=== PATIENT | male | born 1965 | race Caucasian/White ===

== ENCOUNTER 2021-04-30 11:12 | Emergency (ER) | payer BC, SELFPAY ==
[2021-04-30] VITALS (12 sets, daily range): BP systolic 103–133; BP diastolic 68–80; PULSE 62–77; RESP 13–23; TEMP 36.9; O2SAT 97–100; BMI 26.2
--- NOTE | 2021-04-30 11:21 | DI.RAD.S_ITS ---
PROCEDURE: XR CHEST 1V INDICATIONS: chest pain TECHNIQUE: One view of the chest was acquired. COMPARISON: [facility], CR, XR CHEST 1 VIEW, 04/25/2021, 13:02. FINDINGS: Surgical changes and devices: None. Lungs and pleura: Lungs are clear. No pleural effusions or pneumothorax. Mediastinum: Mediastinal contours appear normal. Heart size is normal. Bones and chest wall: No suspicious bony lesions. Overlying soft tissues appear unremarkable. IMPRESSION: Portable chest within normal limits. Dictated by: Jed Mancilla M.D. on 04/30/2021 at 10:41 Approved by: Jed Mancilla M.D. on 04/30/2021 at 10:41
[2021-04-30 11:32] LABS: Add Manual Diff / Slide Review NO; Basophils Absolute Auto 0 /uL (0-100); Basophils Percent Auto 0.7 % (0-2); Eosinophils Absolute Auto 100 /uL (0-450); Eosinophils Percent Auto 1.7 % (2-4); Hemoglobin 14.3 g/dL (13.5-17.5); Lymphocytes Absolute Auto 1500 /uL (1100-4500); Lymphocytes Percent Auto 29.5 % (25-40); Mean Corpuscular HGB Conc 33.2 % (30-36); Mean Corpuscular Hemoglobin 30.4 PG (26-34); Mean Corpuscular Volume 91.4 fL (80-100); Monocytes Absolute Auto 500 /uL (0-900); Monocytes Percent Auto 10.8 % (3-14); Neutrophils Absolute Auto 2800 /uL (1500-7000); Neutrophils Percent Auto 57.3 % (50-75); Platelet Count 217 X10^3/uL (150-400); Red Cell Distribution Width 13.7 % (11.6-14.8)
[2021-04-30 11:41] LABS: Alanine Aminotransferase 25 IU/L (<50); Albumin 4.2 g/dL (3.5-5.0); Albumin Globulin Ratio 1.5 (1.0-2.8); Alkaline Phosphatase 54 U/L (38-126); Aspartate Aminotransferase 31 IU/L (17-59); BUN Creatinine Ratio 18.3 (6-22); Bilirubin Total 0.5 mg/dL (0.2-1.3); Blood Urea Nitrogen 15 mg/dL (9-20); Calcium 9.2 mg/dL (8.4-10.2); Carbon Dioxide 27 mmol/L (22-32); Chloride 106 mmol/L (98-107); Creatine Kinase 169 U/L (55-170); Estimated Glomerular Filt Rate > 60.0 mL/min (>60); Globulin 2.8 g/dL (1.7-4.1); Glucose 110 mg/dL (70-100); HEMOLYSIS < 15 (0-50); Lipase 73 U/L (23-300); Potassium 4.3 mmol/L (3.4-5.1); Sodium 139 mmol/L (137-145)
[2021-04-30 11:53] LABS: Troponin I < 0.012 ng/mL (0.01-0.034)
[2021-04-30 11:57] LABS: CKMB % Relative Index 1.2 % (1.5-5.0); Creatine Kinase MB 2.01 ng/mL (<2.37)
--- NOTE | 2021-04-30 11:58 | ED.CHESTPAIN ---
HPI - Chest Pain General Chief Complaint: Chest Pain Stated Complaint: heart issues, covid test done- no result Time Seen by Provider: 04/30/21 11:46 Source: patient Mode of arrival: Ambulatory Limitations: no limitations History of Present Illness HPI narrative: Patient is a 55-year-old male who on Wednesday of last week had an episode where he was somewhat lightheaded and had chest discomfort. He went to an outside facility by EMS. He states that he had a workup this facility and was subsequently discharged home. Had been relatively asymptomatic until today. He has she followed up with his primary doctor yesterday. He stated that there discussion was they were going to work on getting him a stress test. Today he was sitting at home and had the same symptoms that he had on Wednesday once again. He is currently asymptomatic. He states that he felt somewhat dizzy and then had left-sided chest pain. No nausea vomiting. No abdominal pain. No new rashes. No vision changes. No problems breathing. No lower extremity swelling. Related Data Home Medications Medication Instructions Recorded Confirmed acetaminophen 500 mg tablet 1,000 mg PO QID PRN 01/26/20 01/26/20 (Tylenol Extra Strength) aloe vera 25 mg capsule mg PO 01/26/20 01/26/20 antiarthritic combination no.2 900 mg PO 01/26/20 01/26/20 mg tablet (glucosamine-chondroitin) cholecalciferol (vitamin D3) 25 1,000 unit PO BID tab 01/26/20 01/26/20 mcg (1,000 unit) tablet fexofenadine 180 mg tablet 180 mg PO DAILY 01/26/20 01/26/20 (Isabel Allergy) fluticasone propionate 50 1 spray NASAL DAILY 01/26/20 01/26/20 mcg/actuation nasal spray,suspension (Flonase Allergy Relief) multivitamin 1 tab PO DAILY 01/26/20 01/26/20 omega-3 fatty acids 1,000 mg 1,000 mg PO DAILY 01/26/20 01/26/20 capsule (Fish Oil Concentrate) red yeast rice 600 mg capsule 300 mg PO BID cap 01/26/20 01/26/20 turmeric 400 mg capsule mg PO 01/26/20 01/26/20 Allergies Allergy/AdvReac Type Severity Reaction Status Date / Time Iodinated Contrast Media Allergy Unknown Verified 04/30/21 11:22 [IODINATED CONTRAST- ORAL AND IV DYE] Review of Systems Constitutional Constitutional: Reports system reviewed and no additional complaints, except as documented Cardiovascular Cardiovascular: Reports as per HPI Respiratory Respiratory: Reports as per HPI Gastrointestinal Gastrointestinal: Reports system reviewed and no additional complaints, except as documented Musculoskeletal Musculoskeletal: Reports system reviewed and no additional complaints, except as documented Integumentary/Breasts Skin/Breast: Reports system reviewed and no additional complaints, except as documented Neurologic Neurologic: Reports system reviewed and no additional complaints, except as documented Hematologic/Lymphatic On Anticoagulants: No Allergic/Immunologic Allergic/Immunologic: Reports system reviewed and no additional complaints, except as documented Patient History Medical History Bruise Social History Smoking Status: Never smoker Smoking Status: Never smoker alcohol intake frequency: holidays/special occasions only Substance Use Type: does not use Exam Initial Vital Signs Initial Vital Signs: Vital Signs Temperature 98.4 F 04/30/21 11:18 Pulse Rate 77 04/30/21 11:18 Respiratory Rate 15 04/30/21 11:18 Blood Pressure 119/77 04/30/21 11:18 Pulse Oximetry 99 04/30/21 11:18 HENMT Head: normal to inspection and normocephalic Eyes General: appearance normal, both eyes and all related structures Resp Effort & Inspection: normal respiratory effort Auscultation: clear to auscultation bilaterally Cardio Rate: regular rate Rhythm: regular rhythm GI Inspection: normal to inspection Skin General: no rashes or lesions noted Neuro General: patient alert, patient awake and moves all extremities Extrem General: normal to inspection and capillary refill normal Psych Appearance: grossly normal and well kempt Scores HEART Score Heart Score history: Slightly Suspicious Heart Score EKG: Normal Heart Score Age: 45-64 years old Heart Score risk factors: 1-2 risk factors Heart Score troponin: < or = to normal limit Heart Score Total: 2 Course Orders Ordered: ED Orders 04/30/21 11:20 Complete Blood Count AUTO DIFF Stat Comprehensive Metabolic Panel Stat Lipase Stat Troponin & CK Cardiac Panel Stat 04/30/21 11:21 XR chest 1V Stat EKG-12 Lead Stat 04/30/21 13:39 Troponin & CK Cardiac Panel Stat Vital Signs Vital signs: Vital Signs - 8 hr 08/11/21 11:18 04/30/21 11:19 04/30/21 11:20 Temperature 98.4 F Pulse Rate 77 77 73 Respiratory Rate 15 Blood Pressure 119/77 119/77 Pulse Oximetry 99 99 100 04/30/21 11:30 04/30/21 12:00 04/30/21 12:30 Temperature Pulse Rate 77 69 72 Respiratory Rate 23 15 Blood Pressure 133/68 103/71 106/80 Pulse Oximetry 99 99 99 04/30/21 13:00 04/30/21 13:01 04/30/21 13:30 Temperature Pulse Rate 66 66 63 Respiratory Rate 17 15 13 Blood Pressure 114/77 105/78 Pulse Oximetry 97 97 97 04/30/21 14:00 Temperature Pulse Rate 65 Respiratory Rate 14 Blood Pressure 109/79 Pulse Oximetry 97 MDM - Chest Pain Lab Data Attestation: I reviewed the patient's lab results. Result diagrams: 04/30/21 11:20 04/30/21 11:20 Labs: Lab Results 04/30/21 04/30/21 04/30/21 Range/Units 11:20 11:20 13:39 WBC 5.0 (4.5-11.0) X10^3/uL RBC 4.70 (4.5-5.9) X10^6/uL Hgb 14.3 (13.5-17.5) g/dL Hct 43.0 (41-53) % MCV 91.4 (80-100) fL MCH 30.4 (26-34) PG MCHC 33.2 (30-36) % RDW 13.7 (11.6-14.8) % Plt Count 217 (150-400) X10^3/uL Neut % (Auto) 57.3 (50-75) % Lymph % (Auto) 29.5 (25-40) % Pickett % (Auto) 10.8 (3-14) % Eos % (Auto) 1.7 L (2-4) % Baso % (Auto) 0.7 (0-2) % Neut # (Auto) 2800 (6365-5985) /uL Lymph # (Auto) 1500 (6542-3189) /uL Pickett # (Auto) 500 (0-900) /uL Eos # (Auto) 100 (0-450) /uL Baso # (Auto) 0 (0-100) /uL Sodium 139 (137-145) mmol/L Potassium 4.3 (3.4-5.1) mmol/L Chloride 106 (98-107) mmol/L Carbon Dioxide 27 (22-32) mmol/L BUN 15 (9-20) mg/dL Creatinine 0.82 (0.66-1.25) mg/dL Estimated GFR > 60.0 (>60) mL/min BUN/Creatinine Ratio 18.3 (6-22) Glucose 110 H (70-100) mg/dL Calcium 9.2 (8.4-10.2) mg/dL Total Bilirubin 0.5 (0.2-1.3) mg/dL AST 31 (17-59) IU/L ALT 25 (<50) IU/L Alkaline Phosphatase 54 (38-126) U/L Total Creatine Kinase 169 163 (55-170) U/L CK-MB (CK-2) 2.01 1.72 (<2.37) ng/mL CK-MB (CK-2) Rel Index 1.2 L 1.1 L (1.5-5.0) % Troponin I < 0.012 < 0.012 (0.01-0.034) ng/mL Total Protein 7.0 (6.3-8.2) g/dL Albumin 4.2 (3.5-5.0) g/dL Globulin 2.8 (1.7-4.1) g/dL Albumin/Globulin Ratio 1.5 (1.0-2.8) Lipase 73 (23-300) U/L ECG Data Attestation: I personally reviewed and interpreted this ECG as follows: Interpretation: Sinus rhythm Ventricular rate is 72 Occasional PVC Normal QRS Normal QTC No ST T wave changes MDM Narrative Medical decision making narrative: Symptom free since arrival here to the emergency department. Has a low risk heart score. Has a unremarkable EKG. Troponins negative x2. He has already seen his primary doctor after having an ED visit last week. There is referral in place to have him get a stress test. Patient could be discharged home and follow-up with the stress test. He was given return precautions. He expressed understanding and agreement Discharge Plan Departure Patient Disposition: Home Clinical Impression: Atypical chest pain Instructions: DI for Atypical Chest Pain Activity Restrictions/Additional Instructions: Continue all of your medications as directed and I recommend that you again make contact with your primary doctor and be sure to schedule the stress test for further evaluation. Return to the emergency department for any new or worsening symptoms Prescriptions: No Action fexofenadine [Isabel Allergy] 180 mg tablet 180 mg PO DAILY RF: 0 fluticasone propionate [Flonase Allergy Relief] 50 mcg/actuation spray,suspension 1 spray NASAL DAILY RF: 0 acetaminophen [Tylenol Extra Strength] 500 mg tablet 1,000 mg PO QID PRNRF: 0 multivitamin Tablet 1 tab PO DAILY RF: 0 glucosamine-chondroitin 900 mg tablet PO RF: 0 red yeast rice 600 mg capsule 300 mg PO BID RF: 0 omega-3 fatty acids [Fish Oil Concentrate] 1,000 mg capsule 1,000 mg PO DAILY RF: 0 cholecalciferol (vitamin D3) 25 mcg (1,000 unit) tablet 1,000 unit PO BID RF: 0 aloe vera 25 mg capsule PO RF: 0 turmeric 400 mg capsule PO RF: 0 Referrals: Pierre Chang MD [Primary Care Provider] -
[2021-04-30 14:02] LABS: Creatine Kinase 163 U/L (55-170)
[2021-04-30 14:13] LABS: Troponin I < 0.012 ng/mL (0.01-0.034)
[2021-04-30 14:17] LABS: CKMB % Relative Index 1.1 % (1.5-5.0); Creatine Kinase MB 1.72 ng/mL (<2.37)
== END 2021-04-30 15:07 | disposition home or self-care (01) ==
PROVIDERS: Emergency Provider Emergency Medicine; PCP Family Medicine
DX: R07.89 Other chest pain (principal); R42 Dizziness and giddiness
CPT/HCPCS: 36415; 71045; 80053; 82550; 82553; 83690; 84484; 85025; 93005; 99283; 99284

== ENCOUNTER → 2021-05-17 14:06 | Outpatient (CLI) | payer BC, SELFPAY ==
[2021-05-17 14:54] LABS: COVID19 -Nasal RAPID Negative (Negative)
== END ==
PROVIDERS: PCP Family Medicine; Visit Provider Nurse Practitioner
DX: Z20.822 Contact with and (suspected) exposure to COVID-19 (principal)
CPT/HCPCS: 87635

== ENCOUNTER → 2021-05-19 07:35 | Outpatient (CLI) | payer BC, SELFPAY ==
--- NOTE | 2021-05-19 14:59 | DI.NM.S_ITS ---
PROCEDURE PERFORMED: Exercise treadmill stress and rest myocardial perfusion imaging with gating to assess ejection fraction and regional wall motion. DATE OF SERVICE: 05/19/2021 ORDERING PROVIDER: Moraima Polk MD INDICATIONS: The patient is a 55-year-old male with a recent emergency room visit for dyspnea and lightheadedness with reported transient ST-segment abnormalities. EXERCISE TREADMILL TESTING: The patient was able to exercise for 10 minutes 2 seconds on a standard Vinicius protocol suggesting fair exercise capacity with an LISA of -5%. He had a normal heart rate and blood pressure response, achieving a maximum heart rate of 158 BPM (96% of his predicted maximum). He had a brief, mild atypical chest discomfort in stage II, that resolved with a deep breath, although returned in late recovery, and described it as penetrating through to his back and was intermittent. His resting ECG shows sinus rhythm with normal ST segments and occasional PVCs. With exercise, there are no significant ST-segment shifts with occasional isolated PVCs without complex ventricular ectopy. At 9 minutes of exercise at a heart rate of 150 BPM, 27.4 millicuries of technetium-99m Myoview was injected. He was imaged 20 minutes later using a gated SPECT acquisition protocol. Earlier in the day while at rest, he had been injected with 11.6 millicuries of technetium-99m Myoview and was imaged 20 minutes later, again using a gated SPECT acquisition protocol. FINDINGS: RAW DATA: There appears to be fairly good myocardial tracer uptake. Mild diaphragmatic attenuation is suggested. The lung/heart ratio is normal at 0.36 with a normal TID ratio of 0.96. QUANTITATED GATED SPECT: Post-stress ejection fraction is estimated at 71% without any focal wall motion abnormality and specifically the inferior wall appears to have normal contractility. The resting ejection fraction is estimated at 64% with a similar contraction pattern and an end-diastolic volume of 112 mL. MYOCARDIAL PERFUSION IMAGING: Post-stress supine images shows a fairly normal myocardial perfusion pattern with a mild defect in the base of the inferior wall in a pattern consistent with diaphragmatic attenuation artifact, supported by its complete resolution on the prone images, which shows a fairly homogeneous uniform pattern of tracer activity. The resting images show a similar perfusion pattern. IMPRESSION: 1. Normal myocardial perfusion study. 2. Mild diaphragmatic attenuation artifact but no evidence for myocardial ischemia or previous myocardial infarction. 3. Normal left ventricular systolic function without focal wall motion abnormalities. 4. Good exercise capacity without ECG evidence of ischemia. He had atypical chest discomfort that is unlikely to reflect angina and had occasional PVCs, but no complex ventricular ectopy. KenRik maldonado - TORREY/shani/andrez doc#: [id number]/job#: [id number] dd: 05/19/2021 12:50:00 dt: 05/19/2021 14:44:00 DICTATING MD/COPIES TO: Deshaun Chapa MD; Moraima Polk MD COPIES MNE: SHAYAN;
== END ==
PROVIDERS: PCP Student in an Organized Health Care Education/Training Program; Referring Provider Student in an Organized Health Care Education/Training Program; Visit Provider Student in an Organized Health Care Education/Training Program
DX: R07.89 Other chest pain (principal); R42 Dizziness and giddiness; R06.00 Dyspnea, unspecified
CPT/HCPCS: 78452; 93017; A9502

== ENCOUNTER → 2022-03-25 09:48 | Outpatient (CLI) | payer BC, SELFPAY ==
--- NOTE | 2022-03-25 | DI.CT.S_ITS ---
PROCEDURE: CT SINUS SCREEN WO CON INDICATIONS: chronic pansinusitis TECHNIQUE: Noncontrast 3.0 mm axial images acquired from the frontal sinuses to the mid-sella, with coronal and sagittal reformats. For radiation dose reduction, the following was used: automated exposure control, adjustment of mA and/or kV according to patient size. COMPARISON: None. FINDINGS: Image quality: Excellent. Sinuses: There is minimal mucosal thickening within the maxillary sinuses bilaterally. Minimal ethmoid air cell mucosal thickening is present. Remaining sinuses are clear. No fluid levels are identified. Ostiomeatal Complexes: Ostiomeatal complexes are patent. No Олег cells. Miscellaneous: Visualized intra-orbital contents are normal. Right middle turbinates bright bullosa is present. There are no paradoxical turbinate curvature. Rightward nasal septal deviation. IMPRESSION: Minimal scattered areas of mucosal thickening with patent ostiomeatal complexes. Dictated by: Yanelis Barbour M.D. on 03/25/2022 at 17:01 Approved by: Yanelis Barbour M.D. on 03/25/2022 at 17:02
== END ==
PROVIDERS: PCP Student in an Organized Health Care Education/Training Program
DX: J32.4 Chronic pansinusitis (principal)
CPT/HCPCS: 70486